=== PATIENT | male | born 1965 | race Caucasian/White ===

== ENCOUNTER 2020-08-22 14:00 | Outpatient (RCR) | payer OTHER, SELFPAY ==
[2020-07-02 09:26] VITALS: BMI 39.4
== END 2020-09-24 07:59 | disposition home or self-care (01) ==
LOC: ANHDMC 14:00
PROVIDERS: PCP Internal Medicine; Visit Provider Internal Medicine
DX: E11.9 Type 2 diabetes mellitus without complications (principal); Z71.3 Dietary counseling and surveillance; Z71.89 Other specified counseling
CPT/HCPCS: 97802; G0108

== ENCOUNTER 2020-09-09 13:20 | Inpatient (IN) | payer OTHER, SELFPAY ==
[2020-09-09] VITALS (15 sets, daily range): BP systolic 125–138; BP diastolic 78–86; PULSE 83–110; RESP 15–23; TEMP 36.2–38.8; O2SAT 89–95; BMI 36.0
--- NOTE | ~2020-09-09 | XR_ITS ---
XR chest 1V portable DATE: 09/09/2020 13:54 INDICATION: Shortness of breath. Covid positive. TECHNIQUE: Portable AP chest on 09/09/2020 at 1355 hours. COMPARISON: 02/01/2009 CT pulmonary FINDINGS: There is patchy bilateral pulmonary infiltrate, consistent with bilateral pneumonia. Normal heart size. No pulmonary vascular congestion or pleural effusion. No pneumothorax. IMPRESSION: Patchy bilateral pulmonary infiltrates, consistent with pneumonia Reviewed, dictated and finalized at location B. D IDENTIFICATION SPECIALIST
--- NOTE | 2020-09-09 13:36 | PC.NURSE ---
EDP Ariel at bedside, pt noted to be 89% on Ra, placed on 3L via NC at this time raising o2 level to 95%.
--- NOTE | 2020-09-09 13:37 | ED.GENADULT ---
HPI - General Adult General Chief complaint: Unspecified Stated complaint: shortness of breath, covid positive Time Seen by Provider: 09/09/20 13:31 Source: patient History of Present Illness HPI narrative: Patient is a 55 y/o male complaining of moderate shortness of breath starting 1 week ago. He states that his SOB is worsened by walking and exertion. He also has cough and fever up to 102.4. He states that he tested positive for COVID 1 week ago. Related Data Home Medications Medication Instructions Recorded Confirmed cholecalciferol (vitamin D3) 50 50 mcg PO DAILY 06/13/20 06/25/20 mcg (2,000 unit) tablet Allergies Allergy/AdvReac Type Severity Reaction Status Date / Time Sulfa (Sulfonamide Allergy Unknown Rash Verified 06/25/20 13:30 Antibiotics) Quinolones AdvReac Joint Pain Verified 09/09/20 11:24 Review of Systems Constitutional: Constitutional: Denies chills, Reports fever(s), Denies headache(s) and Denies weakness Eyes: Eyes: Denies blurry vision ENT: Denies headache(s) and Denies neck pain Cardiovascular: Cardiovascular: Denies chest pain and Reports dyspnea Respiratory: Respiratory: Reports cough and Reports dyspnea Gastrointestinal: Gastrointestinal: Denies abdominal pain, Denies diarrhea, Denies nausea and Denies vomiting Genitourinary: Genitourinary: Denies hematuria and Denies dysuria Musculoskeletal: Musculoskeletal: Denies back pain and Denies neck pain Neurologic: Denies headache(s) and Denies weakness PMFSH Past Medical History Medical History Abnormal finding of blood chemistry Body mass index (BMI) 40.0-44.9, adult Cough COVID-19 DM type 2 (diabetes mellitus, type 2) Encounter for routine adult health examination without abnormal findings Encounter for special screening examination for neoplasm of prostate Exposure to COVID-19 virus Hyperlipidemia Lateral epicondylitis of right elbow On group home drug therapy Skin cancer Sleep apnea Vision abnormalities Vitamin D deficiency Surgical History Surgical History History of left knee surgery arthroscopy History of surgery stomach/bowl Family History Family History Mother Family history of premature coronary heart disease Father Family history of coronary artery disease Other Acute myocardial infarction Diabetes mellitus Heart disease Social History Social History Smoking status: Never smoker Second hand tobacco smoke exposure: No Alcohol intake: current Gender identity (if verbalized by the patient): Male Spiritual care concerns: No Exam Const: General: no acute distress and well developed Orientation/consciousness: oriented to person, oriented to place, oriented to time and patient oriented x3 HENMT: Head: normocephalic Ears: external ears normal General nose exam: Normal external nose present Eyes: General: appearance normal, both eyes and all related structures Conjunctivae: conjunctivae normal Neck: Neck: normal visual inspection and full ROM Chest: Chest palpation & inspection: normal inspection of the chest and no tenderness Resp: Effort & Inspection: normal respiratory effort Auscultation: clear to auscultation bilaterally Cardio: Rate: tachycardic Rhythm: regular rhythm GI: GI Palp: No abdominal tenderness and Yes Soft to palpation Skin: General skin exam: normal color and turgor normal Neuro: General: oriented to person, oriented to place, oriented to time and patient oriented x3 Cognition (Neuro): normal cognition Extrem: General: normal to inspection, full ROM and no pedal edema Psych: Appearance: grossly normal Mental Status: mental status grossly normal Affect: normal affect Course Consultations Consultation #1: Discussed with BRENNON Aguilar, who agrees
--- NOTE | 2020-09-09 13:40 | ECG_ITS ---
Measurements Intervals Lilly Rate: 108 P: -19 OK: 120 QRS: 14 QRSD: 100 T: 14 QT: 344 QTc: 462 Interpretive Statements SINUS TACHYCARDIA INCOMPLETE RIGHT BUNDLE BRANCH BLOCK DELAYED PRECORDIAL R/S TRANSITION BORDERLINE T WAVE ABNORMALITY- INFERIOR LEADS ABNORMAL ECG Electronically Signed On 09-09-2020 14:15:06 MOBILITY SCOOTER REPAIRER by Vernon Rodriguez D.O.
--- NOTE | 2020-09-09 13:50 | PC.NURSE ---
xray at bedside.
[2020-09-09 14:06] LABS: Basophils Percent Auto 0.8 % (0.2-1.2); Hematocrit 45.2 % (42.0-52.0); Hemoglobin 15.6 g/dL (14.0-18.0); Immature Granulocyte Absolute 0.03 K/mm3 (0.00-0.031); Immature Granulocyte Percent A 0.8 % (0-0.5); Lymphocytes Absolute Auto 0.72 K/mm3 (0.9-3.2); Lymphocytes Percent Auto 20.3 % (18.3-44.2); Mean Corpuscular HGB Conc 34.5 g/dl (32-36); Mean Corpuscular Hemoglobin 29.6 pg (26-34); Mean Corpuscular Volume 85.8 fl (80-100); Mean Platelet Volume 9.3 fl (7.4-10.4); Monocytes Absolute Auto 0.4 K/mm3 (0.1-0.6); Monocytes Percent Auto 11.8 % (2.6-8.5); Neutrophils Absolute Auto 2.4 K/mm3 (1.3-6.7); Neutrophils Percent Auto 66.3 % (45.5-73.1); Platelet Count Result 107 k/mm3 (150-375); Red Blood Count 5.27 M/mm3 (4.6-6.20); Red Cell Distribution Width 12.4 % (11.5-14.5); White Blood Count 3.6 K/mm3 (4.5-10.0)
[2020-09-09] MEDS: DEXAMETHASONE SOD PHOS INJ 4 MG/ML VIAL 6 MG IV PUSH (14:06)
[2020-09-09 14:17] LABS: Alanine Aminotransferase 74 U/L (4-50); Albumin Level 3.7 g/dL (3.5-5.1); Alkaline Phosphatase 71 U/L (38-126); Anion Gap 4 mmol/L (8-16); Aspartate Amino Transferase 79 U/L (17-59); Bilirubin,Total 0.5 mg/dL (0.2-1.3); Blood Urea Nitrogen 10 mg/dL (9-20); Calcium 7.6 mg/dL (8.4-10.2); Carbon Dioxide 31 mmol/L (22-30); Chloride 98 mmol/L (98-107); Estimated Glomerular Filt Rate > 60; Glucose 190 mg/dL (75-110); Potassium 3.4 mmol/L (3.4-5.0); Sodium 133 mmol/L (137-145)
[2020-09-09] MEDS: REMDESIVIR 200 MG/NS 250 ML 200 MG/250 ML BAG 250 MG IVPB (14:53)
--- NOTE | 2020-09-09 14:59 | PC.NURSE ---
VERBAL ORDER FROM PATRICIO PAREDES FOR 1G OFIRMEV IV STAT FOR TEMP 101.8
--- NOTE | 2020-09-09 15:57 | PC.NURSE ---
This patient, Chris Rodas, was admitted to [facility] Surg Room 328-01. Patient/family oriented to hospital policies and general routines including ID bracelet, bed and alarms, visiting hours, pain management, procedures, bathroom and other care routines, personal items, smoking policy, room service/diet, and visiting hours. Information on how to activate the Rapid Response Team has been discussed. Patient/Family are encouraged to report perceived risks to care and to ask questions if they do not understand what they are told or what they should do.
[2020-09-09 21:24] LABS: Glucose Point of Care 259 (65-105)
--- NOTE | 2020-09-09 21:27 | PM.IMHP ---
H&P: HPI History of Present Illness Date/Time: 09/09/20 21:27 Chief Complaint: Worsening shortness of breath Narrative: This is a pleasant 55 year old Diabetic male with known hyperlipidemia and HTN who presented to the hospital today with worsening shortness of breath. He was diagnosed with COVID-19 eight days ago. His and two daughters also were COVID-19 positive. He has had ongoing intermittent fevers and coughing. He was evaluated in the ER today and found to be hypoxic on room air. He was placed on 3L of oxygen via NC to maintain his oxygen saturations. CXR demonstrated patchy bilateral pulmonary infiltrates. The patient was treated with IV decadron and Remdesivir in the ER. On my encounter with him, he continues to have coughing but denies any fever, chest pain, nausea, vomiting, diarrhea, abdominal pain, dysuria, hematuria, diarrhea, or rectal bleeding. No other complaints. Review of Systems Review of Systems: All systems reviewed & are unremarkable except as noted in HPI and below PMFSH Past Medical History Medical History Abnormal finding of blood chemistry Body mass index (BMI) 40.0-44.9, adult Cough COVID-19 DM type 2 (diabetes mellitus, type 2) Encounter for routine adult health examination without abnormal findings Encounter for special screening examination for neoplasm of prostate Exposure to COVID-19 virus H/O: HTN (hypertension) Hyperlipidemia Lateral epicondylitis of right elbow On long-term drug therapy Skin cancer Sleep apnea Vision abnormalities Vitamin D deficiency Surgical History Surgical History History of left knee surgery arthroscopy History of surgery stomach/bowl Family History Family History Mother Family history of premature coronary heart disease Father Family history of coronary artery disease Other Acute myocardial infarction Diabetes mellitus Heart disease Social History Social History Smoking status: Never smoker Second hand tobacco smoke exposure: No Alcohol intake: never Substance use: never Substance use type: does not use Gender identity (if verbalized by the patient): Male Spiritual care concerns: No Meds Home Medications and Allergies Home Medications Medication Instructions Recorded Confirmed Type blood sugar diagnostic #100 each 03/11/20 09/09/20 Rx rosuvastatin 20 mg tablet 20 mg PO DAILY #90 tablet 04/24/20 09/09/20 Rx empagliflozin 5 mg-metformin 500 1 tablet PO BID #180 tablet 06/13/20 09/09/20 Rx mg tablet icosapent ethyl 1 gram capsule See Rx Instructions .ROUTE 07/15/20 09/09/20 Rx .COMPLEX #120 capsule Allergies Allergy/AdvReac Type Severity Reaction Status Date / Time Sulfa (Sulfonamide Allergy Unknown Rash Verified 06/25/20 13:30 Antibiotics) Quinolones AdvReac Joint Pain Verified 09/09/20 11:24 Vital Signs Vital Signs - 24 hr 09/09/20 13:31 09/09/20 13:32 09/09/20 13:33 Temperature 37.7 C H Pulse Rate 107 H 107 H 107 H Respiratory Rate 17 17 17 Blood Pressure 127/83 127/83 Pulse Oximetry 90 89 L 09/09/20 13:53 09/09/20 14:00 09/09/20 14:01 Temperature Pulse Rate 107 H 107 H 106 H Respiratory Rate 16 18 15 Blood Pressure 131/78 Pulse Oximetry 94 94 93 09/09/20 14:02 09/09/20 14:21 09/09/20 14:54 Temperature 38.8 C H Pulse Rate 108 H 110 H 106 H Respiratory Rate 23 H 20 17 Blood Pressure 138/86 138/86 Pulse Oximetry 94 94 92 09/09/20 15:28 09/09/20 15:40 09/09/20 16:00 Temperature 36.8 C Pulse Rate 98 95 90 Respiratory Rate 15 18 Blood Pressure 128/81 135/81 Pulse Oximetry 93 95 09/09/20 16:52 Temperature Pulse Rate 90 Respiratory Rate 18 Blood Pressure Pulse Oximetry 95 Exam Const: General: cooperative, alert, aw
[2020-09-09] MEDS: SODIUM CHLORIDE 0.9% IV 1,000 ML 75 ML IV CONT (22:09)
[2020-09-09] MEDS: guaiFENesin/DEXTROMETHORPHAN 10 ML UDC 5 ML PO (22:10)
[2020-09-10] VITALS (11 sets, daily range): BP systolic 116–134; BP diastolic 78–85; PULSE 78–93; RESP 18–20; TEMP 36.1–36.5; O2SAT 89–94
[2020-09-10] MEDS: LEVALBUTEROL HFA (*SP) 15 GM INHALER 2 PUFF INHALATION ×4 (01:59→20:44)
[2020-09-10 06:03] LABS: Basophils Percent Auto 0.3 % (0.2-1.2); Hemoglobin 15.3 g/dL (14.0-18.0); Immature Granulocyte Absolute 0.02 K/mm3 (0.00-0.031); Immature Granulocyte Percent A 0.5 % (0-0.5); Lymphocytes Absolute Auto 0.69 K/mm3 (0.9-3.2); Lymphocytes Percent Auto 18.9 % (18.3-44.2); Mean Corpuscular HGB Conc 34.8 g/dl (32-36); Mean Corpuscular Hemoglobin 30.3 pg (26-34); Mean Corpuscular Volume 87.1 fl (80-100); Mean Platelet Volume 9.1 fl (7.4-10.4); Monocytes Absolute Auto 0.5 K/mm3 (0.1-0.6); Monocytes Percent Auto 14.2 % (2.6-8.5); Neutrophils Absolute Auto 2.4 K/mm3 (1.3-6.7); Neutrophils Percent Auto 66.1 % (45.5-73.1); Platelet Count Result 109 k/mm3 (150-375); Red Blood Count 5.05 M/mm3 (4.6-6.20); Red Cell Distribution Width 12.5 % (11.5-14.5); White Blood Count 3.7 K/mm3 (4.5-10.0)
[2020-09-10 06:21] LABS: Alanine Aminotransferase 64 U/L (4-50); Anion Gap 6 mmol/L (8-16); Blood Urea Nitrogen 11 mg/dL (9-20); Calcium 7.8 mg/dL (8.4-10.2); Carbon Dioxide 30 mmol/L (22-30); Chloride 99 mmol/L (98-107); Estimated CRCL calculation 170 ml/min; Estimated Glomerular Filt Rate > 60; Glucose 142 mg/dL (75-110); Magnesium 1.9 mg/dL (1.6-2.3); Potassium 3.6 mmol/L (3.4-5.0); Sodium 135 mmol/L (137-145)
[2020-09-10 08:08] LABS: Glucose Point of Care 141 (65-105)
[2020-09-10] MEDS: ROSUVASTATIN 10 MG TABLET PO (09:43)
[2020-09-10] MEDS: ENOXAPARIN 40 MG/0.4 ML SYRINGE SUB-Q (09:43)
[2020-09-10] MEDS: guaiFENesin/DEXTROMETHORPHAN 10 ML UDC 5 ML PO (09:43)
[2020-09-10] MEDS: DEXAMETHASONE SOD PHOS INJ 4 MG/ML VIAL 6 MG IV PUSH (09:43)
[2020-09-10] MEDS: SODIUM CHLORIDE 0.9% IV 1,000 ML 75 ML IV CONT (09:58)
[2020-09-10] MEDS: REMDESIVIR 100 MG/NS 250 ML 100 MG/250 ML BAG 250 MG IVPB (11:54)
[2020-09-10 12:04] LABS: Glucose Point of Care 168 (65-105)
--- NOTE | 2020-09-10 13:29 | PM.IMPN ---
Progress Note: A&P Assessment and Plan (1) Acute respiratory failure with hypoxia: Code(s): J96.01 - Acute respiratory failure with hypoxia Status: Acute Assessment and Plan: secondary to COVID-19 pneumonia. He has been hypoxic in the 88-89% range. Currently he is maintaining adequate O2 saturations on 3 L per nasal cannula continue supplemental O2 with goal saturation 90% or above treatment for COVID-19 as described below (2) Pneumonia due to COVID-19 virus: Code(s): U07.1 - COVID-19; J12.82 - Pneumonia due to coronavirus disease 2019 Status: Acute Assessment and Plan: Patient tested positive for COVID on 09/02/2020 with symptom onset approximately 9 days prior to presentation. CXR showed patchy bilateral pulmonary infiltrates. He is currently requiring 3 L O2 per nasal cannula. Continue Remdesivir for up to 5 days. Started on 09/09/20. Monitor LFTs Continue dexamethasone for up to 10 days, also started 09/09 Supplemental O2 as noted above. Supportive care to include bronchodilators, expectorants, and antipyretics Trend acute phase reactants (3) Elevated liver enzymes: Code(s): R74.8 - Abnormal levels of other serum enzymes Status: Acute Assessment and Plan: [place] to be secondary to COVID-19 infection. monitor LFTs closely, especially in light of Remdesivir therapy (4) DM type 2 (diabetes mellitus, type 2): Qualifiers: Diabetes mellitus exterminator helper termite insulin use: without assisted use Diabetes mellitus complication status: without complication Qualified Code(s): E11.9 - Type 2 diabetes mellitus without complications Code(s): E11.9 - Type 2 diabetes mellitus without complications Status: Chronic Assessment and Plan: last A1c 7.2 in March 2020. Blood sugars reviewed today and remain fairly well controlled. Continue Accuchecks ACHS, SSI Coverage, and hypoglycemic protocol. empagliflozin-metformin is non formulary therefore has been discontinued. (5) Hyperlipidemia: Qualifiers: Hyperlipidemia type: mixed hyperlipidemia Qualified Code(s): E78.2 - Mixed hyperlipidemia Code(s): E78.5 - Hyperlipidemia, unspecified Status: Chronic Assessment and Plan: Continue statin therapy. (6) H/O: HTN (hypertension): Code(s): Z86.79 - Personal history of other diseases of the circulatory system Status: Chronic Assessment and Plan: He is not currently on any antihypertensive agents. Blood pressures reviewed and have been very well controlled. Last BP 134/81. Monitor BP daily Subjective Date/time seen: 09/10/20 13:29 Interval history: date of service: 09/10/2020 Chris Rodas is a 55-year-old male with a history of type 2 diabetes mellitus, hypertension, hyperlipidemia, and WILL who is seen in follow-up for COVID-19 pneumonia. He is feeling better today. He becomes extremely dyspneic with minimal exertion. After walking to the bathroom today he became quite winded. He reports coughing only when he is feeling particularly short of breath. This morning he cough productive of yellow sputum but since then has not been coughing much. At rest, he feels comfortable with his breathing. He reports loss of smell and decreased sense taste. his appetite has been fair and he has been maintaining adequate oral intake. He denies fevers or chills. He had a regular bowel movement this morning. He does endorse abdominal bloating but denies cramping or pain. He denies any urinary symptoms. denies chest pain or palpitations. Denies weakness, dizziness, or lightheadedness. Review of Systems Review of Systems: All systems reviewed & are unremarkable except as noted in HPI and below Exam Narrative: Exam Narrative: Mr. Rodas is No obese, well-appearing 55-year-old male who is lying semi recumbent in bed. he appears comfortable and is in NARD. HR 90, BP 11
[2020-09-10] MEDS: INSULIN ASPART (*BKC) 100 UNITS/ML SUB-Q (16:51)
[2020-09-10 17:53] LABS: Glucose Point of Care 219 (65-105)
[2020-09-10] MEDS: guaiFENesin 12 HR 600 MG TABCR PO (20:40)
[2020-09-10] MEDS: SIMETHICONE 80 MG TAB.CHEW PO (22:34)
[2020-09-11] VITALS (7 sets, daily range): BP systolic 117–143; BP diastolic 49–81; PULSE 70–85; RESP 18–22; TEMP 36.4–37.2; O2SAT 90–95
[2020-09-11] MEDS: LEVALBUTEROL HFA (*SP) 15 GM INHALER 2 PUFF INHALATION ×3 (02:53→17:30)
[2020-09-11 06:38] LABS: Hematocrit 42.4 % (42.0-52.0); Hemoglobin 14.5 g/dL (14.0-18.0); Mean Corpuscular HGB Conc 34.2 g/dl (32-36); Mean Corpuscular Volume 87.6 fl (80-100); Mean Platelet Volume 9.3 fl (7.4-10.4); Platelet Count Result 140 k/mm3 (150-375); Red Blood Count 4.84 M/mm3 (4.6-6.20); Red Cell Distribution Width 12.6 % (11.5-14.5); White Blood Count 5.4 K/mm3 (4.5-10.0)
[2020-09-11 06:47] LABS: Alanine Aminotransferase 56 U/L (4-50); Albumin Level 3.5 g/dL (3.5-5.1); Alkaline Phosphatase 62 U/L (38-126); Anion Gap 8 mmol/L (8-16); Aspartate Amino Transferase 56 U/L (17-59); Bilirubin,Total 0.5 mg/dL (0.2-1.3); Blood Urea Nitrogen 14 mg/dL (9-20); CRP 1.4 mg/dL (<1.0); Calcium 8.1 mg/dL (8.4-10.2); Carbon Dioxide 30 mmol/L (22-30); Chloride 100 mmol/L (98-107); Estimated CRCL calculation 147 ml/min; Estimated Glomerular Filt Rate > 60; Glucose 153 mg/dL (75-110); Lactate Dehydrogenase 603 U/L (313-618); Potassium 3.4 mmol/L (3.4-5.0); Sodium 138 mmol/L (137-145)
[2020-09-11 08:47] LABS: Glucose Point of Care 141 (65-105)
[2020-09-11] MEDS: DEXAMETHASONE SOD PHOS INJ 4 MG/ML VIAL 6 MG IV PUSH (10:00)
[2020-09-11] MEDS: ENOXAPARIN 40 MG/0.4 ML SYRINGE SUB-Q (10:48)
[2020-09-11] MEDS: ROSUVASTATIN 10 MG TABLET PO (10:48)
[2020-09-11] MEDS: REMDESIVIR 100 MG/NS 250 ML 100 MG/250 ML BAG 250 MG IVPB (10:48)
[2020-09-11] MEDS: guaiFENesin 12 HR 600 MG TABCR PO (10:48)
--- NOTE | 2020-09-11 12:07 | PM.IMPN ---
Progress Note: A&P Assessment and Plan (1) Acute respiratory failure with hypoxia: Code(s): J96.01 - Acute respiratory failure with hypoxia Status: Acute Assessment and Plan: Secondary to COVID-19 pneumonia. He was hypoxic in the 88-89% range. Currently he is maintaining adequate O2 saturations on 3 L per nasal cannula continue supplemental O2 with goal saturation 90% or above treatment for COVID-19 as described below (2) Pneumonia due to COVID-19 virus: Code(s): U07.1 - COVID-19; J12.82 - Pneumonia due to coronavirus disease 2019 Status: Acute Assessment and Plan: Patient tested positive for COVID on 09/02/2020 with symptom onset approximately 9 days prior to presentation. CXR showed patchy bilateral pulmonary infiltrates. He is currently requiring 3 L O2 per nasal cannula. Continue Remdesivir for up to 5 days. Started on 09/09/20. Monitor LFTs Continue dexamethasone for up to 10 days, also started 09/09 Supplemental O2 as noted above. Supportive care to include bronchodilators, expectorants, antipyretics, incentive spirometer Trend acute phase reactants (3) Elevated liver enzymes: Code(s): R74.8 - Abnormal levels of other serum enzymes Status: Acute Assessment and Plan: [place] to be secondary to acute viral illness. ALT is elevated but improving. AST and ALP wnl monitor LFTs closely, especially in light of Remdesivir therapy (4) DM type 2 (diabetes mellitus, type 2): Qualifiers: Diabetes mellitus fci insulin use: without fci use Diabetes mellitus complication status: without complication Qualified Code(s): E11.9 - Type 2 diabetes mellitus without complications Code(s): E11.9 - Type 2 diabetes mellitus without complications Status: Chronic Assessment and Plan: last A1c 7.2 in March 2020. Blood sugars reviewed today and remain fairly well controlled. Continue Accuchecks ACHS, SSI Coverage, and hypoglycemic protocol. empagliflozin-metformin is non formulary therefore has been discontinued. Close monitoring of glucose trends especially in light of IV steroid therapy (5) Hyperlipidemia: Qualifiers: Hyperlipidemia type: mixed hyperlipidemia Qualified Code(s): E78.2 - Mixed hyperlipidemia Code(s): E78.5 - Hyperlipidemia, unspecified Status: Chronic Assessment and Plan: Continue statin therapy. (6) H/O: HTN (hypertension): Code(s): Z86.79 - Personal history of other diseases of the circulatory system Status: Chronic Assessment and Plan: He is not currently on any antihypertensive agents. Blood pressures reviewed and have been very well controlled. Last BP 120/77 Monitor BP daily Subjective Date/time seen: 09/11/20 12:07 Interval history: Date of service: 09/11/2020 Chris Rodas is a 55-year-old male with a history of type 2 diabetes mellitus, hypertension, hyperlipidemia, and WILL who is seen in follow-up for COVID-19 pneumonia. Is feeling okay today. At rest he is comfortable. He does endorse dyspnea on exertion specifically with walking to the bathroom. He states that he was able to walk from the bed to the couch without much dyspnea but walking further to the restroom did cause him to be quite short of breath. He coughs only when he is feeling dyspneic or if he tries to take a deep breath. He is not having much uterine production. He has been eating well. He denies abdominal pain, nausea, vomiting, cramping, or bloating. He has been having regular bowel movements. He has been urinating without difficulty. He denies chest pain or palpitations. Denies dizziness, lightheadedness, fevers, chills, or weakness. Review of Systems Review of Systems: All systems reviewed & are unremarkable except as noted in HPI and below Exam Narrative: Exam Narrative: Mr. Rodas is an obese, well-appearing 55-year-old male who
[2020-09-11 12:43] LABS: Glucose Point of Care 156 (65-105)
[2020-09-11 17:04] LABS: Glucose Point of Care 297 (65-105)
[2020-09-11] MEDS: INSULIN ASPART (*BKC) 100 UNITS/ML SUB-Q (18:42)
[2020-09-11] MEDS: guaiFENesin/DEXTROMETHORPHAN 10 ML UDC 5 ML PO (20:45)
[2020-09-12] VITALS (7 sets, daily range): BP systolic 118–128; BP diastolic 69–75; PULSE 63–74; RESP 18–20; TEMP 36.6–37.2; O2SAT 90–96
[2020-09-12 06:28] LABS: Hematocrit 42.3 % (42.0-52.0); Hemoglobin 14.4 g/dL (14.0-18.0); Mean Corpuscular Hemoglobin 30.4 pg (26-34); Mean Corpuscular Volume 89.4 fl (80-100); Mean Platelet Volume 9.1 fl (7.4-10.4); Platelet Count Result 156 k/mm3 (150-375); Red Blood Count 4.73 M/mm3 (4.6-6.20); Red Cell Distribution Width 12.6 % (11.5-14.5); White Blood Count 5.9 K/mm3 (4.5-10.0)
[2020-09-12 06:48] LABS: Alanine Aminotransferase 50 U/L (4-50); Albumin Level 3.3 g/dL (3.5-5.1); Alkaline Phosphatase 60 U/L (38-126); Anion Gap 2 mmol/L (8-16); Aspartate Amino Transferase 47 U/L (17-59); Bilirubin,Total 0.5 mg/dL (0.2-1.3); Blood Urea Nitrogen 14 mg/dL (9-20); Calcium 8.2 mg/dL (8.4-10.2); Carbon Dioxide 35 mmol/L (22-30); Chloride 102 mmol/L (98-107); Estimated CRCL calculation 130 ml/min; Estimated Glomerular Filt Rate > 60; Glucose 140 mg/dL (75-110); Potassium 3.6 mmol/L (3.4-5.0); Sodium 139 mmol/L (137-145)
[2020-09-12 08:27] LABS: Glucose Point of Care 132 (65-105)
[2020-09-12] MEDS: DEXAMETHASONE SOD PHOS INJ 4 MG/ML VIAL 6 MG IV PUSH (09:28)
[2020-09-12] MEDS: LEVALBUTEROL HFA (*SP) 15 GM INHALER 2 PUFF INHALATION ×3 (09:28→20:05)
[2020-09-12] MEDS: ENOXAPARIN 40 MG/0.4 ML SYRINGE SUB-Q ×2 (09:29→20:05)
[2020-09-12] MEDS: guaiFENesin 12 HR 600 MG TABCR PO ×2 (09:29→20:05)
[2020-09-12] MEDS: ROSUVASTATIN 10 MG TABLET PO (09:29)
[2020-09-12] MEDS: REMDESIVIR 100 MG/NS 250 ML 100 MG/250 ML BAG 250 MG IVPB (09:30)
[2020-09-12 12:06] LABS: Glucose Point of Care 186 (65-105)
--- NOTE | 2020-09-12 14:55 | PM.IMPN ---
Progress Note: A&P Assessment and Plan (1) Acute respiratory failure with hypoxia: Code(s): J96.01 - Acute respiratory failure with hypoxia Status: Acute Assessment and Plan: Secondary to COVID-19 pneumonia. He was hypoxic in the 88-89% range upon presentation. Currently he is maintaining adequate O2 saturations on 3 L per nasal cannula continue supplemental O2 with goal saturation 90% or above treatment for COVID-19 as described below We will proceed with a home O2 evaluation tomorrow (2) Pneumonia due to COVID-19 virus: Code(s): U07.1 - COVID-19; J12.82 - Pneumonia due to coronavirus disease 2018 Status: Acute Assessment and Plan: Patient tested positive for COVID on 09/02/2020 with symptom onset approximately 9 days prior to presentation. CXR showed patchy bilateral pulmonary infiltrates. He is currently requiring 3 L O2 per nasal cannula. He reports marked symptomatic improvement today. Continue Remdesivir for up to 5 days. Started on 09/09/20. Monitor LFTs Continue dexamethasone for up to 10 days, also started 09/09 Supplemental O2 as noted above. Supportive care to include bronchodilators, expectorants, antipyretics, incentive spirometer Trend acute phase reactants Hopeful discharge tomorrow if continued improvement. Plan for home O2 eval as noted above (3) Elevated liver enzymes: Code(s): R74.8 - Abnormal levels of other serum enzymes Status: Acute Assessment and Plan: Resolved. [place] to be secondary to acute viral illness. LFTs have normalized. monitor LFTs closely, especially in light of Remdesivir therapy (4) DM type 2 (diabetes mellitus, type 2): Qualifiers: Diabetes mellitus exterminator helper insulin use: without exterminator helper use Diabetes mellitus complication status: without complication Qualified Code(s): E11.9 - Type 2 diabetes mellitus without complications Code(s): E11.9 - Type 2 diabetes mellitus without complications Status: Chronic Assessment and Plan: last A1c 7.2 in March 2020. Blood sugars reviewed today and remain fairly well controlled Continue Accuchecks ACHS, SSI Coverage, and hypoglycemic protocol. empagliflozin-metformin is non formulary therefore has been discontinued. Close monitoring of glucose trends especially in light of IV steroid therapy (5) Hyperlipidemia: Qualifiers: Hyperlipidemia type: mixed hyperlipidemia Qualified Code(s): E78.2 - Mixed hyperlipidemia Code(s): E78.5 - Hyperlipidemia, unspecified Status: Chronic Assessment and Plan: Continue statin therapy. (6) H/O: HTN (hypertension): Code(s): Z86.79 - Personal history of other diseases of the circulatory system Status: Chronic Assessment and Plan: He is not currently on any antihypertensive agents. Blood pressures reviewed and have been very well controlled. Last BP 118/69 Monitor BP daily Subjective Date/time seen: 09/12/20 14:55 Interval history: Date of service: 09/12/2020 Chris Rodas is a 55-year-old male with a history of type 2 diabetes mellitus, hypertension, hyperlipidemia, and WILL who is seen in follow-up for COVID-19 pneumonia. Is feeling a lot better today. His dyspnea has improved significantly. He was able to walk to the bathroom and back without much shortness of breath. He is coughing less. He has been eating well and his appetite has improved. He reports regular bowel movements and denies any urinary symptoms. He denies abdominal pain, cramping, or bloating. Denies fevers or chills. He has no additional concerns at this time and is feeling a lot better. Review of Systems Review of Systems: All systems reviewed & are unremarkable except as noted in HPI and below Exam Narrative: Exam Narrative: Mr. Rodas is an obese, well-appearing 55-year-old male who is lying semi recumbent in bed. he appears comfortable a
[2020-09-12 17:41] LABS: Glucose Point of Care 240 (65-105)
[2020-09-12] MEDS: INSULIN ASPART (*BKC) 100 UNITS/ML SUB-Q (17:54)
[2020-09-12 21:20] LABS: Glucose Point of Care 231 (65-105)
[2020-09-13] VITALS (11 sets, daily range): BP systolic 123; BP diastolic 72; PULSE 65–100; RESP 20; TEMP 37; O2SAT 85–93
[2020-09-13] MEDS: LEVALBUTEROL HFA (*SP) 15 GM INHALER 2 PUFF INHALATION ×3 (02:00→14:28)
[2020-09-13 06:47] LABS: Hematocrit 42.1 % (42.0-52.0); Hemoglobin 14.3 g/dL (14.0-18.0); Mean Corpuscular Hemoglobin 30.2 pg (26-34); Mean Platelet Volume 9.2 fl (7.4-10.4); Platelet Count Result 164 k/mm3 (150-375); Red Blood Count 4.73 M/mm3 (4.6-6.20); Red Cell Distribution Width 12.7 % (11.5-14.5); White Blood Count 6.3 K/mm3 (4.5-10.0)
[2020-09-13 07:03] LABS: Alanine Aminotransferase 44 U/L (4-50); Albumin Level 3.1 g/dL (3.5-5.1); Alkaline Phosphatase 58 U/L (38-126); Anion Gap 2 mmol/L (8-16); Aspartate Amino Transferase 40 U/L (17-59); Bilirubin,Total 0.5 mg/dL (0.2-1.3); Blood Urea Nitrogen 13 mg/dL (9-20); CRP 0.8 mg/dL (<1.0); Carbon Dioxide 32 mmol/L (22-30); Chloride 105 mmol/L (98-107); Estimated CRCL calculation 147 ml/min; Estimated Glomerular Filt Rate > 60; Glucose 120 mg/dL (75-110); Lactate Dehydrogenase 512 U/L (313-618); Potassium 3.6 mmol/L (3.4-5.0); Sodium 139 mmol/L (137-145)
[2020-09-13 08:25] LABS: Glucose Point of Care 94 (65-105)
[2020-09-13] MEDS: DEXAMETHASONE SOD PHOS INJ 4 MG/ML VIAL 6 MG IV PUSH (08:52)
[2020-09-13] MEDS: guaiFENesin 12 HR 600 MG TABCR PO (08:52)
[2020-09-13] MEDS: ENOXAPARIN 40 MG/0.4 ML SYRINGE SUB-Q (08:52)
[2020-09-13] MEDS: ROSUVASTATIN 10 MG TABLET PO (08:52)
[2020-09-13] MEDS: REMDESIVIR 100 MG/NS 250 ML 100 MG/250 ML BAG 250 MG IVPB (09:01)
--- NOTE | 2020-09-13 11:11 | HOMEO2EVAL ---
Home Oxygen Evaluation RC: Home Oxygen (O2) Evaluation Start: 09/13/20 09:13 Freq: ONCE Status: Active Protocol: RPE Activity Type Activity Date Activity User E-Sign Co-Sign Detail Recorded Client Recorded Date Recorded By Document 09/13/20 10:00 GABRIELA [email or web address] 09/13/20 11:11 GABRIELA Document 09/13/20 10:03 GABRIELA [email or web address] 09/13/20 11:11 GABRIELA Document 09/13/20 10:05 GABRIELA [email or web address] 09/13/20 11:11 GABRIELA Document 09/13/20 10:10 GABRIELA [email or web address] 09/13/20 11:11 GABRIELA Document 09/13/20 10:12 GABRIELA [email or web address] 09/13/20 11:11 GABRIELA Document 09/13/20 10:14 GABRIELA [email or web address] 09/13/20 11:11 GABRIELA Document 09/13/20 10:15 GABRIELA [email or web address] 09/13/20 11:11 GABRIELA Document 09/13/20 10:25 GABRIELA [email or web address] 09/13/20 11:11 GABRIELA 09/13/20 09/13/20 09/13/20 10:00 10:03 10:05 Home O2 Evaluation Test Phase Resting Resting Resting Oxygen Delivery Room Air Nasal Cannula Nasal Cannula Oxygen Flow Rate (L/min) 1 2 Pulse Oximetry (90-100 %) 87 L 87 L 90 Pulse Rate (60-100 beats/min) 82 Ambulation Distance (feet) Home Oxygen Evaluation Comments Treatment Charges O2 Evaluation - Inpatient 09/13/20 09/13/20 09/13/20 10:10 10:12 10:14 Home O2 Evaluation Test Phase Exercise Exercise Exercise Oxygen Delivery Nasal Cannula Nasal Cannula Nasal Cannula Oxygen Flow Rate (L/min) 2 3 4 Pulse Oximetry (90-100 %) 85 L 86 L 87 L Pulse Rate (60-100 beats/min) 99 Ambulation Distance (feet) Home Oxygen Evaluation Comments Treatment Charges 09/13/20 09/13/20 10:15 10:25 Home O2 Evaluation Test Phase Exercise Resting Oxygen Delivery Nasal Cannula Nasal Cannula Oxygen Flow Rate (L/min) 5 2 Pulse Oximetry (90-100 %) 89 L 90 Pulse Rate (60-100 beats/min) 100 83 Ambulation Distance (feet) 30 Home Oxygen Evaluation Comments pt requires 2 l at rest and 5 l with activity Treatment Charges
--- NOTE | 2020-09-13 11:12 | PCRCNOTE ---
Home o2 eval completed, Pt requires 2 L at rest and 5 L with activity. Will arrange with [facility] for home O2 and bring tank to room for transport home.
[2020-09-13 12:32] LABS: Glucose Point of Care 216 (65-105)
--- NOTE | 2020-09-13 12:56 | PM.DS ---
DS: Admitting Diagnosis Admitting Diagnosis Admitting Diagnosis: COVID-19 pneumonia DS: Discharge Diagnosis Discharge Diagnosis (1) Acute respiratory failure with hypoxia: Code(s): J96.01 - Acute respiratory failure with hypoxia Status: Acute Assessment and Plan: Secondary to COVID-19 pneumonia. He was hypoxic in the 88-89% range upon presentation. He required up to 3 L of supplemental O2 per nasal cannula. He had a home O2 evaluation and he will require 2 L at rest and 5 L with exertion. He will continue supplemental oxygen until follow-up his PCP. (2) Pneumonia due to COVID-19 virus: Code(s): U07.1 - COVID-19; J12.82 - Pneumonia due to coronavirus disease 2019 Status: Acute Assessment and Plan: Patient tested positive for COVID on 09/02/2020 with symptom onset approximately 9 days prior to presentation. CXR showed patchy bilateral pulmonary infiltrates. He required up to 3 L supplemental O2. He remained afebrile. He completed 5 days of IV Remdesivir. He received 5 days of IV Dexamethasone and will continue PO at home to complete 10 days. Supportive care provided including bronchodilators and expectorants. We discussed COVID-19 precautions. (3) Elevated liver enzymes: Code(s): R74.8 - Abnormal levels of other serum enzymes Status: Acute Assessment and Plan: Resolved. [place] to be secondary to acute viral illness. LFTs normalized. (4) DM type 2 (diabetes mellitus, type 2): Qualifiers: Diabetes mellitus complication status: without complication Diabetes mellitus detention insulin use: without detention use Qualified Code(s): E11.9 - Type 2 diabetes mellitus without complications Code(s): E11.9 - Type 2 diabetes mellitus without complications Status: Chronic Assessment and Plan: Last A1c 7.2 in March 2020. Blood sugars were generally well controlled, especially given steroid therapy. His empagliflozin-metformin was non formulary therefore held during hospital stay but should be continued at home. Encouraged close glucose monitoring given continued steroid use. (5) Hyperlipidemia: Qualifiers: Hyperlipidemia type: mixed hyperlipidemia Qualified Code(s): E78.2 - Mixed hyperlipidemia Code(s): E78.5 - Hyperlipidemia, unspecified Status: Chronic Assessment and Plan: Continue statin therapy. (6) H/O: HTN (hypertension): Code(s): Z86.79 - Personal history of other diseases of the circulatory system Status: Chronic Assessment and Plan: He is not currently on any antihypertensive agents. Blood pressures reviewed and were very well controlled. DS: Summary Hospital Course Reason for hospitalization: COVID-19 pneumonia Hospital Course: date of admission: 09/09/2020 date of discharge: 09/13/2020 Chris Rodas is a 55-year-old male with a history of type 2 diabetes mellitus, hypertension, hyperlipidemia, and WILL who presented to the emergency department on 09/09/2020 with complaints of shortness of breath ongoing approximately 1 week and worsened with exertion. He has been diagnosed with COVID-19 1 week prior to presentation and had been monitoring his O2 sats at home and noted that they had declined to the upper 80s. He also reported cough and fever with T-max 102.4?. Upon presentation to the emergency department, he was afebrile, mildly tachycardic with additional vital signs stable, he had leukopenia and thrombocytosis, sodium slightly decreased with additional electrolytes stable, and chest x-ray showed patchy bilateral pulmonary infiltrates consistent with pneumonia. He was admitted to the hospitalist service for further evaluation and management. Please see above for further details. His oxygen requirements remained stable and he had significant symptomatic improvement. He began feeling much better and requested discharge home. He had a home O2 eval and will continue w
== END 2020-09-13 14:35 | disposition home or self-care (01) | DRG 177 ==
LOC: ANHED 14:46 → ANH3MEDSUR 15:09
PROVIDERS: Family Medicine; Physician Assistant; Admitting Provider Family Medicine; Emergency Provider Emergency Medicine; PCP Internal Medicine; Visit Provider Internal Medicine
DX: U07.1 COVID-19 (principal); J96.01 Acute respiratory failure with hypoxia; J12.82 Pneumonia due to coronavirus disease 2019; R74.8 Abnormal levels of other serum enzymes; E11.9 Type 2 diabetes mellitus without complications; E78.2 Mixed hyperlipidemia; I10 Essential (primary) hypertension; G47.33 Obstructive sleep apnea (adult) (pediatric); E55.9 Vitamin D deficiency, unspecified; E66.9 Obesity, unspecified; Z68.36 Body mass index [BMI] 36.0-36.9, adult; Z85.828 Personal history of other malignant neoplasm of skin
CPT/HCPCS: 36415; 71045; 80048; 80053; 82728; 82948; 83615; 83735; 84460; 85025; 85027; 86140; 93005; 94618; 94640; 96361; 96365; 96372; 96375; 96376; 99285; A9270; G0378; J0131; J1100; J1650; J1815; J7030

== ENCOUNTER 2020-09-27 11:05 | Outpatient (CLI) | payer OTHER, SELFPAY ==
--- NOTE | ~2020-09-27 | XR_ITS ---
EXAMINATION: XR chest 2V DATE: 09/27/2020 11:23 INDICATION: COVID 19 pneumonia follow-up. TECHNIQUE: PA and lateral views of the chest were obtained. COMPARISON: Chest radiograph dated 09/09/2020 FINDINGS: Significant improvement in airspace opacities in the right mid to lower and left lower lung zone cons istent with improving COVID pneumonia. No new airspace opacities, pulmonary edema, pleural effusion o r pneumothorax. The cardiomediastinal silhouette is normal. Visualized bones and soft tissues are unr emarkable. IMPRESSION: 1. Decreasing opacities in the right mid to lower and left lower lung zone consistent with improving COVID pneumonia. Reviewed, dictated and finalized at location B. SEWER IMPRESSION: 1. Decreasing opacities in the right mid to lower and left lower lung zone cons istent with improving COVID pneumonia.
== END 2020-09-27 11:06 | disposition home or self-care (01) ==
PROVIDERS: PCP Internal Medicine; Visit Provider Internal Medicine
DX: U07.1 COVID-19 (principal); J12.82 Pneumonia due to coronavirus disease 2019
CPT/HCPCS: 71046

== ENCOUNTER 2020-10-21 09:15 | Outpatient (RCR) | payer OTHER, SELFPAY ==
[2020-10-08 14:11] VITALS: BMI 34.0
== END 2020-12-24 09:02 | disposition home or self-care (01) ==
LOC: ANHDMC 09:15
PROVIDERS: PCP Internal Medicine; Visit Provider Internal Medicine
DX: E11.9 Type 2 diabetes mellitus without complications (principal); Z71.3 Dietary counseling and surveillance; Z71.89 Other specified counseling
CPT/HCPCS: 97803; G0108

== ENCOUNTER 2022-01-05 10:44 | Outpatient (CLI) | payer OTHER, SELFPAY ==
--- NOTE | ~2022-01-05 | XR_ITS ---
XR knee RT min 4V DATE: 01/05/2022 11:05 INDICATION: Right generalized knee pain TECHNIQUE: Weidman, standing AP, PA and lateral views COMPARISON: None FINDINGS: There is mild periarticular spurring at the patellofemoral joint. Joint spaces are relatively preserved. No fracture or dislocation, radiopaque intra-articular loose body or chondrocalcinosis. No periosteal reaction or bone destruction. IMPRESSION: Mild patellofemoral osteoarthritis Reviewed, dictated and finalized at location A.
== END 2022-01-05 10:45 | disposition home or self-care (01) ==
LOC: ANHIMG 10:45
PROVIDERS: PCP Internal Medicine; Visit Provider Internal Medicine
DX: M17.11 Unilateral primary osteoarthritis, right knee (principal)
CPT/HCPCS: 73564

== ENCOUNTER → 2022-01-28 09:25 | Outpatient (CLI) | payer OTHER, SELFPAY ==
--- NOTE | ~2022-01-28 | MR_ITS ---
EXAMINATION: MR knee RT wo/w con DATE: 01/28/2022 10:12 INDICATION: Right knee pain TECHNIQUE: Magnetic resonance imaging (MRI) of the right without and with 20 mL Multihance knee was p erformed without intravenous contrast. Sequences included coronal PD-weighted FSE, coronal PD-weight ed FS FSE, sagittal T2-weighted FSE, sagittal PD-weighted FS FSE and axial PD weighted fat saturated FSE. COMPARISON: None. FINDINGS: Medial compartment: Longitudinal horizontal tear at the posterior horn of the medial meniscus which extends to the free e dge at the lateral side of the posterior horn and to the inferior articular surface in the peripheral third at the junction of the body and posterior horn. Partial-thickness cartilage loss and small mar ginal osteophytes with mild reticular edema-like signal change along the posterior rim of the medial tibial plateau. Lateral compartment: Lateral meniscus is normal. Articular cartilage is normal. Patellofemoral compartment: Deep chondral fissuring without degenerative subchondral changes extending across the central aspect of the lateral patellar facet. Deep chondral ulceration in places likely full-thickness with underlyi ng cortical irregularity and subarticular edema-like signal changes involving a significant portion o f the lateral trochlea and extending to the caudal aspect of the trochlear groove. Additional small r egion of partial-thickness chondral fissuring without degenerative subchondral changes at the inferio r aspect of the medial trochlea. Ligaments and tendons: Anterior and posterior cruciate ligaments are normal. The medial collateral ligament and fibular mark ateral ligament complex are normal. Mild tendinopathy at the distal quadriceps tendon. Patellar tendo n is normal. The visualized medial and lateral hamstring tendons as well as the iliotibial band are n ormal. Fluid: Normal mild thin synovial enhancement at the periphery of a small right knee joint effusion. No loose osteochondral bodies identified. Osseous/other: Bone alignment is normal. No fracture or pathologic marrow replacing process. Medial plical band whic h does not cross the medial rim of the medial trochlea. There is also a suprapatellar plical band. Mi ld prepatellar edema without discrete bursal fluid collection. IMPRESSION: 1. Horizontal tear at the posterior horn of the medial meniscus. 2. Mild to moderate osteoarthritis with extensive high-grade chondromalacia patellofemoral compartmen t. 3. Mild osteoarthritis in the medial compartment with subcortical edema-like signal change along the posterior rim which could be related to overlying chondromalacia or reactive edema related to altered stress distribution resulting from the overlying meniscal tear. Reviewed, dictated and finalized at location A. IMPRESSION: 1. Horizontal tear at the posterior horn of the medial meniscus. 2. Mild to moderate osteoarthritis with extensive high-grade chondromalacia pat ellofemoral compartment. 3. Mild osteoarthritis in the medial compartment with subcortical edema-like si gnal change along the posterior rim which could be related to overlying chondro malacia or reactive edema related to altered stress distribution resulting from the overlying meniscal tear.
[2022-01-28 09:48] LABS: Estimated Glomerular Filt Rate > 60
== END ==
PROVIDERS: PCP Internal Medicine; Visit Provider Internal Medicine
DX: M17.11 Unilateral primary osteoarthritis, right knee (principal); S83.241A Other tear of medial meniscus, current injury, right knee, initial encounter; X58.XXXA Exposure to other specified factors, initial encounter
CPT/HCPCS: 73723; A9577

== ENCOUNTER → 2022-04-29 06:56 | Outpatient (CLI) | payer OTHER, SELFPAY ==
--- NOTE | ~2022-04-29 | MR_ITS ---
EXAMINATION: MR cervical spine wo con DATE: 04/29/2022 07:40 INDICATION: Right-sided chronic cervical radiculopathy. TECHNIQUE: Magnetic resonance imaging (MRI) of the cervical spine was performed without intravenous c ontrast. Sequences included sagittal T2-weighted FSE, sagittal T2-weighted FS FSE, sagittal T1-weight ed FSE, axial MERGE, and axial T2-weighted FSE. COMPARISON: Cervical spine MRI 04/08/2017 FINDINGS: Bone alignment is normal. There is mild chronic anterior wedging of C5 and C7 vertebral bod ies. There is severely decreased disc height at C5-C6 and C6-C7. The spinal cord signal intensity is normal. The following disc levels are specifically discussed: C2-C3: There is a left foraminal protrusion. There is no uncovertebral joint osteoarthritis. There is severe right and mild left facet joint osteoarthritis. There is mild bilateral neural foraminal sten osis. There is no central canal stenosis. C3-C4: The disc is bulging. There is mild right and moderate left uncovertebral joint osteoarthritis. There is moderate bilateral facet joint osteoarthritis. There is mild right and moderate left neural foraminal stenosis. There is no central canal stenosis. C4-C5: The disc is bulging. There is mild bilateral uncovertebral joint osteoarthritis. There is luis re bilateral facet joint osteoarthritis. There is mild bilateral neural foraminal stenosis. There is no central canal stenosis. C5-C6: The disc is bulging. There is severe bilateral uncovertebral joint osteoarthritis. There is mi ld right facet joint osteoarthritis. There is moderate right and mild left neural foraminal stenosis. There is mild central canal stenosis with ventral indentation of the spinal cord. C6-C7: The disc does not extend beyond the endplate margin. There is severe bilateral uncovertebral j oint osteoarthritis. There is no facet joint osteoarthritis. There is mild bilateral neural foraminal stenosis. There is no central canal stenosis. C7-T1: There is a right central extrusion. There is moderate right and mild left uncovertebral joint osteoarthritis. There is mild bilateral facet joint osteoarthritis. There is mild bilateral neural fo raminal stenosis. There is mild central canal stenosis. IMPRESSION: 1. Severe cervical spondylosis, worsened from 04/08/2017. Reviewed, dictated and finalized at location A.
== END ==
PROVIDERS: PCP Internal Medicine; Visit Provider Internal Medicine
DX: M47.892 Other spondylosis, cervical region (principal); R53.1 Weakness; R20.2 Paresthesia of skin
CPT/HCPCS: 72141

== ENCOUNTER 2022-12-01 12:31 | Outpatient (CLI) | payer OTHER, SELFPAY ==
[2022-12-01 13:29] LABS: SARS-CoV-2 RNA PCR Negative (Negative)
== END 2022-12-01 12:32 | disposition home or self-care (01) ==
PROVIDERS: PCP Internal Medicine; Visit Provider Internal Medicine
DX: R05.9 Cough, unspecified (principal); R51.9 Headache, unspecified; Z20.822 Contact with and (suspected) exposure to COVID-19
CPT/HCPCS: U0003; U0005

== ENCOUNTER 2023-10-13 10:50 | Outpatient (CLI) | payer OTHER, SELFPAY ==
[2023-10-13 11:51] LABS: Strep Group A RT-PCR NOT DETECTED (Negative)
[2023-10-13 12:03] LABS: Influenza A QL RT-PCR Negative (Negative); Influenza B QL RT-PCR Negative (Negative); RSV RNA, RT-PCR Negative (Negative); SARS-CoV-2 RNA PCR Negative (Negative)
== END 2023-10-13 10:51 | disposition home or self-care (01) ==
LOC: ANHLAB 10:52
PROVIDERS: PCP Internal Medicine; Visit Provider Internal Medicine
DX: Z20.822 Contact with and (suspected) exposure to COVID-19 (principal)
CPT/HCPCS: 87637; 87651

== ENCOUNTER 2024-12-20 07:36 | Outpatient (CLI) | payer OTHER, SELFPAY ==
--- NOTE | ~2024-12-20 | XR_ITS ---
Thoracic spine: Clinical Indication: Back pain AP and lateral views were performed. No fracture is seen. There is normal alignment of the vertebrae. The intervertebral disc spaces appe ar normal. Paravertebral soft tissues appear normal. Impression: No significant abnormalities noted. Reviewed, dictated and finalized at [facility]. Impression: No significant abnormalities noted.
--- NOTE | ~2024-12-20 | XR_ITS ---
Lumbosacral Spine: AP and lateral views Clinical History: Pain Findings: The normal lordotic curve is maintained. No fracture evident. There is 9 mm anterolisthesis of L5 over S1, with severe degenerative disc narrowing at this level. There are mild degenerative ch anges in the remainder of the lumbar spine. There is mild to moderate facet arthropathy. The sacroili ac joints are normally outlined. Impression: Severe degenerative spondylosis at L5-S1 with 9 mm anterolisthesis at this level. Moderate degenerative change in the remainder of the lumbar spine. Reviewed, dictated and finalized at location . Impression: Severe degenerative spondylosis at L5-S1 with 9 mm anterolisthesis at this leve l. Moderate degenerative change in the remainder of the lumbar spine.
--- NOTE | ~2024-12-20 | XR_ITS ---
Supine and upright views of the abdomen Clinical history: Abdominal pain Findings: Bowel gas pattern is nonspecific. Probable prior herniorrhaphy. No evidence for obstruction or free air. No abnormal mass lesion or calcification is seen. Osseous structures are intact. Impression: No acute abnormality. Prior herniorrhaphy. Reviewed, dictated and finalized at [facility]. Impression: No acute abnormality. Prior herniorrhaphy.
--- OUTSIDE RECORDS SUMMARY | 2024-12-20 07:38 | XMS_ITS | Referral Summary ---
Author Organization [place] [id number] Address Formerly [facility] [place] [address] Care Team Providers Care Mucker Cofferdam Name Role Phone Taurus Lomas MD Primary Care Provider [phone] Allergies Active Allergy Reactions Criticality Noted Date Comments Quinolones Joint pain Low 03/06/2022 Sulfa (Sulfonamide Antibiotics) Hives High 1208/2018 Tetracycline Muscle pain High 06/26/2019 Medications Vascepa 1 gram capsuleIndicati ons:hypertrigly ceridemia,daron sterol Take 1 g by mouth every morning 02/05/2022 Active Synjardy XR 10-1,000 mg tablet, IR & ER, biphasic 24hrIndications :type 2 diabetes mellitus Take 1 tablet by mouth every morning 02/02/2022 Active cholecalciferol (VITAMIN D-3) 2000 unit capsuleIndicati ons:Vitamin D Deficiency Take 2,000 Units by mouth 2 (two) times a day 12/25/2021 Active naltrexone HCl (NALTREXONE ORAL)Indication s:colon Take 4.5 mg by mouth every morning Active HYDROcodone-dameon taminophen (NORCO) 5-325 mg per tabletIndicatio ns:Pain Take 1 tablet by mouth every 6 (six) hours as needed for pain 20 tablet 03/05/2022 Active ondansetron (ZOFRAN) 4 mg tablet Take 1 tablet (4 mg total) by mouth every 8 (eight) hours as needed for nausea 12 tablet 03/05/2022 Active meloxicam (MOBIC) 15 mg tablet Take 1 tablet (15 mg total) by mouth daily 30 tablet 1 06/12/2024 Active Active Problems Problem Noted Date Diagnosed Date Complex tear of medial menis cus of right knee as current injury 02/20/2022 Overview (02/20/2022): Added automatically from request for surgery [id number] Immunizations Immunization Administration Dates Next Due Influenza, Quadrivalent, Split, Intramuscular Social History Tobacco Use Types Packs/Day Years Used Date Smoking Tobacco: Never Smokeless Tobacco: Never AUDIT-C Answer Date Recorded Q1: How often do you have a drink containing alcohol? Never 02/23/2022 Q2: How many drinks containi ng alcohol do you have on a typical day when you are drinking? Patient does not drink Q3: How often do you have si x or more drinks on one occasion? Never 02/23/2022 Sex and Gender Information Value Date Recorded Sex Assigned at Not on file Legal Sex Male 12:06 PM PARKING METER SERVICER Gender Identity Not on file Sexual Orientation Not on file Last Filed Vital Signs Vital Sign Reading Time Taken Comments Blood Pressure 135/89 03/06/2022 1:25 PM CDT Pulse 72 03/06/2022 1:30 PM CDT Temperature 36.1 C (97 F) 03/06/2022 1:30 PM CDT Respiratory Rate 16 03/06/2022 1:30 PM CDT Oxygen Saturation 94% 03/06/2022 1:30 PM CDT Inhaled Oxygen Concentration - - Weight 122.5 kg (270 lb) 09/04/2024 9:01 AM PARKING METER SERVICER Height 188 cm (6' 2) 09/04/2024 9:01 AM PARKING METER SERVICER Body Mass Index 34.67 09/04/2024 9:01 AM PARKING METER SERVICER Plan of Treatment Not on file Insurance [facility]PP[facility] Address: [address] [address] [place] [address] [facility]/PPO Address: [address] [address] [place] [address] Care Teams Mucker Cofferdam Relationship Specialty Start Date End Date Taurus Lomas MD [address] [place] [address] PCP - General Internal Medicine 02/16/22
--- OUTSIDE RECORDS SUMMARY | 2024-12-20 07:38 | XMS_ITS | Clinical Summary ---
Author Organization [facility] Address [address] [address] Care Team Providers Care Machinery Mechanic Name Role Phone Taurus Lomas MD Primary Care Provider + Allergies Active Allergy Reactions Criticality Noted Date Comments Sulfa (Sulfonamide Antibiotics) Hives High 08/2018 Tetracycline Muscle Pain High 06/26/2019 Medications rosuvastatin (CRESTOR) 10 mg tablet Take 10 mg by mouth daily at bedtime. Active metFORMIN (GLUCOPHAGE) 1,000 mg tablet Take 1,000 mg by mouth 2 times daily with meals. PATIENT TAKES SYNJARFY XR Active omega-3 fatty acids-fish oil 300-1,000 mg Capsule Take by mouth daily. PATIENT TAKES VASCEPA Active SYNJARDY XR 10-1,000 mg tablet, IR & ER, biphasic 24hr 9 Active VASCEPA 1 gram Capsule 9 Active tirzepatide (Mounjaro) 2.5 mg/0.5 mL Pen Injector Inject 2.5 mg by subcutaneous injection every 7 days. 2 mL 11/25/2023 6:00 PM CDT 4 Active tirzepatide (Mounjaro) 2.5 mg/0.5 mL Pen Injector Inject 0.5 mL (2.5 mg) by subcutaneous injection every 7 days. 2 mL 10/14/2024 3:26 PM CDT 5 Active Active Problems Problem Noted Date Diagnosed Date Elevated INR 06/26/2019 Encounters Date Type Department Care Team Description 10/03/2024 External Device Data [facility]STRACTION Provider, Abstract 10/03/2024 External Device Data [facility]STRACTION Provider, Abstract from Last 3 Months Family History Medical History Relation Name Comments Diabetes Father Diabetes Mother Heart Disease Mother Relation Name Status Comments Brother Alive Father Mother Alive Social History Tobacco Use Types Packs/Day Years Used Date Smoking Tobacco: Never Smokeless Tobacco: Never Alcohol Use Standard Drinks/Week Comments Not Currently 0 (1 standard drink = 0.6 oz pur e alcohol) Sex and Gender Information Value Date Recorded Sex Assigned at Not on file Legal Sex Male 9:07 AM CDT Gender Identity Not on file Sexual Orientation Not on file Last Filed Vital Signs Vital Sign Reading Time Taken Comments Blood Pressure 122/79 07/06/2019 10:52 AM SPECIAL EDUCATION TEACHERS Pulse 90 07/06/2019 10:52 AM SPECIAL EDUCATION TEACHERS Temperature 36.8 C (98.2 F) 07/06/2019 10:52 AM SPECIAL EDUCATION TEACHERS Respiratory Rate - - Oxygen Saturation 96% 07/06/2019 10: 52 AM [employer] EDUCATION TEACHERS Inhaled Oxygen Concentration - - Weight 132.5 kg (292 lb 1.6 oz) 019 10:52 AM SPECIAL EDUCATION TEACHERS Height 188 cm (6' 2) 07/06/2019 10:52 AM SPECIAL EDUCATION TEACHERS Body Mass Index 37.5 07/06/2019 10:52 AM SPECIAL EDUCATION TEACHERS Plan of Treatment Health Maintenance Due Date Last Done Comments DTAP/TDAP/TD VACCINES (1 - Tdap) 1985 HEPATITIS B VACCINES (1 of 3 - 19+ 3-dose series) 07/1984 COLORECTAL SCREENING 2011 Colorectal Cancer Screening 2011 FIT-DNA Q 3 years 2011 FIT/FOBT Q 1 year 2011 Flex Sig/CT Colonography Q 5 years 2011 ZOSTER VACCINE (1 of 2) 2016 INFLUENZA VACCINE (#1) 2024 Insurance RX [facility] [employer] Care Teams Machinery Mechanic Relationship Specialty Start Date End Date Taurus Lomas MD [address] [place] [address] PCP - General Internal Medicine 05/26/19
--- OUTSIDE RECORDS SUMMARY | 2024-12-20 07:38 | XMS_ITS | Clinical Summary ---
Author Organization [place] [id number] [facility] Address Formerly [facility] [place] [address] Care Team Providers Care Nurse Wound Name Role Phone Taurus Lomas MD Primary Care Provider [phone] Allergies Active Allergy Reactions Criticality Noted Date [...] (02/20/2022): Added automatically from request for surgery [id number] Immunizations Immunization Administration Dates Next Due Influenza, Quadrivalent, Split, Intramuscular Surgical History Surgery Date Site/Laterality Comments ANKLE SURGERY 07/26/1982 - 07/25/1983 Right CHOLECYSTECTOMY 07/26/2001 - 07/25/2002 OTHER SURGICAL HISTORY 07/26/1996 - 07/25/1997 tailbone surgery COLON SURGERY 07/26/2005 - 07/25/2006 HERNIA REPAIR 07/26/2007 - 07/25/2008 COLONOSCOPY 06/25/2021 - 07/25/2021 Medical History Medical History Date Comments Sleep apnea Has not started using the CPAP yet, recently got machine. Diabetes mellitus (HCC) A1C 5.7 in 12/2021 per patient Juvenile polyposis syndrome s/p bowel resection, on naltrexone Family History Medical History Relation Name Comments Arthritis Father Diabetes Mother Heart disease Mother Arthritis Sister Anesthesia problems Neg Hx Relation Name Status Comments Father Mother Sister Social History Tobacco Use Types Packs/Day Years [...] on file Legal Sex Male 12:06 PM BODY BUMPER Gender Identity Not on file Sexual Orientation Not on file Obstetrics History Last Filed Vital Signs Vital Sign Reading Time Taken Comments Blood Pressure 135/89 03/06/2022 1:25 PM CDT Pulse 72 03/06/2022 1:30 PM CDT Temperature 36.1 C (97 F) 03/06/2022 1:30 PM CDT Respiratory Rate 16 03/06/2022 1:30 PM CDT Oxygen Saturation 94% 03/06/2022 1:30 PM CDT Inhaled Oxygen Concentration - - Weight 122.5 kg (270 lb) 09/04/2024 9:01 AM BODY BUMPER Height 188 cm (6' 2) 09/04/2024 9:01 AM BODY BUMPER Body Mass Index 34.67 09/04/2024 9:01 AM BODY BUMPER Plan of Treatment Health Maintenance Due Date Last Done Comments Albumin Creatinine Ratio, Urine 1966 Colon Cancer Screening-Colonoscopy 1966 Depression Screening 1966 Hemoglobin A1C 1966 Hepatitis C Screening 1966 Prostate Cancer Screening-PSA 1966 eGFR 1966 Dilated Eye Exam 1966 Foot Exam 1966 Lipid Panel 1966 DTaP/Tdap/Td Vaccine (1 - Tdap) 1977 Hepatitis B Screening 1984 Regular Well Visit/Exam 18-64 1984 Pneumococcal vaccine <65 (1 of 2 - PCV) 1985 Zoster Vaccine (1 of 2) 2016 Covid-19 Vaccine (4 - 2023- season) 2024 07/29/2021, 01/03/2021, 11/26/2020 Influenza Vaccine (Season Ended) 2025 03/26/20 17 Insurance [facility] H[facility]/PPO Address: [facility] [address] [place] [address] [facility]/[place] [address] Care Teams Nurse Wound Relationship Specialty Start Date End Date Taurus Lomas MD [address] [place] [address] PCP - General Internal Medicine 02/16/22
--- OUTSIDE RECORDS SUMMARY | 2024-12-20 07:38 | XMS_ITS | Clinical Summary ---
Author Organization [facility] Address [address] [place] [address] Care Team Providers Care Mr Teacher Name Role Phone Merline Clinton MD Primary Care Provider [phone] Source Comments [facility],non-owned Affiliates and Associated Physician Practices is amultiple site organization consisting of ambulatory clinics and hospital sitesin [place], [place], [place] and [place]. This disclosure is being madepursuant to the Care Everywhere program and may not contain all information available regarding this patient. 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 07/11/20 13 Family History Medical History Relation Name Comments Allergy (Severe) Neg Hx Cancer - Skin, Melanoma Neg Hx Cancer - Skin, Non Melanoma Neg Hx Eczema Neg Hx Psoriasis Neg Hx Rashes/Skin Problems Neg Hx Social History Tobacco Use Types Packs/Day Years Used Date Smoking Tobacco: Never Alcohol Use Standard Drinks/Week Comments No 0 (1 standard drink = 0.6 oz pur e alcohol) Sex and Gender Information Value Date Recorded Sex Assigned at Not on file Legal Sex Male 6:28 PM PARTNER MANAGEMENT CONSULTANT Gender Identity Not on file Sexual Orientation Not on file Last Filed Vital Signs Vital Sign Reading Time Taken Comments Blood Pressure 110/78 08/11/2013 7:47 AM PARTNER MANAGEMENT CONSULTANT Pulse 85 08/03/2013 6:00 PM PARTNER MANAGEMENT CONSULTANT Temperature 36.8 C (98.3 F) 08/03/2013 5:35 PM PARTNER MANAGEMENT CONSULTANT Respiratory Rate 16 08/03/2013 6:00 PM PARTNER MANAGEMENT CONSULTANT Oxygen Saturation 95% 08/03/2013 6:00 PM PARTNER MANAGEMENT CONSULTANT Inhaled Oxygen Concentration - - Weight 130.6 kg (288 lb) 08/11/2013 7:47 AM PARTNER MANAGEMENT CONSULTANT Height 188 cm (6' 2) 08/11/2013 7:47 AM PARTNER MANAGEMENT CONSULTANT Body Mass Index 36.98 08/11/2013 7:47 AM PARTNER MANAGEMENT CONSULTANT Plan of Treatment Health Maintenance Due Date Last Done Comments COLOGUARD (AGES 45-75) - COL ON CA SCREENING 1966 COLON MONITORING 1966 COLONOSCOPY - COLON CA SCREENING 1966 CT COLONOGRAPHY - COLON CA SCREENING 1966 Colorectal Cancer Screening 1966 FIT - COLON CA SCREENING 1966 FLEX SIG - COLON CA SCREENING 1966 LIPID TESTING 1966 HIV SCREENING 1981 HEPATITIS C SCREENING 04/20/1984 DTAP/TDAP/TD VACCINES (1 - Tdap) 1985 HEPATITIS B VACCINE (1 of 3 - 19+ 3-dose series) 1985 PNEUMOCOCCAL VACCINE 50+ (1 of 1 - PCV) 2016 ZOSTER VACCINE (1 of 2) 2016 COVID-19 VACCINE (1 - 2023-2 5 season) 2024 DEPRESSION SCREENING 07/26/2024 INFLUENZA VACCINE (Season Ended) 2025 HIB VACCINE Aged Out No longer eligi ble based on patient's age to complete this topic HPV VACCINE Aged Out No longer eligi ble based on patient's age to complete this topic MENINGOCOCCAL (Group B) VACC INE SHARED DECISION-MAKING Aged Out No longer eligibl e based on patient's age to complete this topic MENINGOCOCCAL GROUPS A/C/Y/W VACCINE Aged Out No longer eligible b ased on patient's age to complete this topic Care Teams Mr Teacher Relationship Specialty Start Date End Date Merline Clinton MD PCP - General 06/21/13
== END 2024-12-20 07:37 | disposition home or self-care (01) ==
LOC: ANHIMG 07:37
PROVIDERS: PCP Internal Medicine; Visit Provider Internal Medicine
DX: R10.9 Unspecified abdominal pain (principal); M47.897 Other spondylosis, lumbosacral region; M51.369 Other intervertebral disc degeneration, lumbar region without mention of lumbar back pain or lower extremity pain
CPT/HCPCS: 72072; 72100; 74018

== ENCOUNTER 2024-12-21 12:47 | Outpatient (CLI) | payer OTHER, SELFPAY ==
--- NOTE | ~2024-12-21 | US_ITS ---
EXAM: RENAL ULTRASOUND HISTORY: R10.9 - Unspecified abdominal pain COMPARISON: None FINDINGS: RIGHT KIDNEY: 12.6 x 5.0 x 5.3 cm. The parenchyma of the right kidney is unremarkable in echogenicity and thickness. No hydronephrosis or bulky renal calculi. LEFT KIDNEY: 12.7 x 4.2 x 7.3cm The parenchyma of the right kidney is unremarkable in echogenicity and thickness No hydronephrosis or renal calculi. BLADDER: Distended with bilateral ureteral jets identified IMPRESSION: Unremarkable sonographic evaluation of bilateral kidneys, as detailed above. Reviewed, dictated and finalized at location A.
== END 2024-12-21 12:48 | disposition home or self-care (01) ==
LOC: GOSHIMG 12:48
PROVIDERS: PCP Internal Medicine; Visit Provider Internal Medicine
DX: R10.9 Unspecified abdominal pain (principal); G89.29 Other chronic pain
CPT/HCPCS: 76775

== ENCOUNTER 2025-05-28 09:35 | Outpatient (CLI) | payer OTHER, SELFPAY ==
--- OUTSIDE RECORDS SUMMARY | 2025-05-28 10:18 | XMS_ITS | Patient Health Record ---
Author Organization [facility] Address [address] [place], [place] [id number] Support Name Relationship Address Phone DOMINGUEZ NEWELL Guarantor Unknown [phone] Reason For Referral No Information Social History Social History Additional Details Category Social Info Options Details Migrated Social History Migrated Social History History of tobacco use : , Smoking Status : Never smoked Plan Of Treatment No Information Insurance Providers Payer Name Payer Address Payer Phone Subscriber Number Group Number Insured Name Patient Relationship to Insured Coverage Start Date Coverage End Date [facility] [address] [address] [place] [address] [id number] DOMINGUEZ NEWELL Self - patient is the insured
--- OUTSIDE RECORDS SUMMARY | 2025-05-28 10:18 | XMS_ITS | Clinical Summary ---
Author Organization [facility] Address [address] [place] [address] Care Team Providers Care Corporate Manager Name Role Phone Taurus Lomas MD Primary [...] Encounters Date Type Department Care Team Description 05/08/2025 External Device Data [facility] ABSTRACTION Provider, Abstract 04/17/2025 External Device Data [facility] ABSTRACTION Provider, Abstract 04/17/2025 External Device Data [facility] ABSTRACTION Provider, Abstract 04/17/2025 External Device Data [facility] ABSTRACTION Provider, Abstract [...] Comments Blood Pressure 122/79 07/06/2019 10:52 AM LAY OUT TECHNICIAN Pulse 90 07/06/2019 10:52 AM LAY OUT TECHNICIAN Temperature 36.8 C (98.2 F) 07/06/2019 10:52 AM LAY OUT TECHNICIAN Respiratory Rate - - Oxygen Saturation 96% 07/06/2019 10: 52 AM LAY OUT TECHNICIAN Inhaled Oxygen Concentration - - Weight 132.5 kg (292 lb 1.6 oz) 019 10:52 AM LAY OUT TECHNICIAN Height 188 cm (6' 2) 07/06/2019 10:52 AM LAY OUT TECHNICIAN Body Mass Index 37.5 07/06/2019 10:52 AM LAY OUT TECHNICIAN Plan of Treatment Health Maintenance Due Date Last Done Comments DTAP/TDAP/TD VACCINES (1 - Tdap) 1985 HEPATITIS B VACCINES (1 of 3 - 19+ 3-dose series) 07/1984 COLORECTAL SCREENING 2011 Colorectal Cancer Screening 2011 FIT-DNA Q 3 years 2011 FIT/FOBT Q 1 year 2011 Flex Sig/CT Colonography Q 5 years 2011 ZOSTER VACCINE (1 of 2) 2016 INFLUENZA VACCINE (#1) 2025 Insurance RX [facility] [employer] Care Teams Corporate Manager Relationship Specialty Start Date End Date Taurus Lomas MD [address] [place] [address] PCP - General Internal Medicine 05/26/19
--- OUTSIDE RECORDS SUMMARY | 2025-05-28 10:18 | XMS_ITS | Clinical Summary ---
Author Organization [facility] Address [address] [place] [address] Care Team Providers Care Spreader Operator Name Role Phone Merline Clinton MD Primary Care Provider Source Comments [facility],non-owned Affiliates and Associated Physician Practices is amultiple site organization consisting of ambulatory clinics and hospital sitesin [place], [place], [place] and [place]. This disclosure is being madepursuant to the Care Everywhere program and may not contain all information available regarding this patient. 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 Gender Identity Not on file Sexual Orientation Not on file Last Filed Vital Signs Vital Sign Reading Time Taken Comments Blood Pressure 110/78 08/11/2013 7:47 AM PHOTORESIST CONTACT PRINTER Pulse 85 08/03/2013 6:00 PM PHOTORESIST CONTACT PRINTER Temperature 36.8 C (98.3 F) 08/03/2013 5:35 PM PHOTORESIST CONTACT PRINTER Respiratory Rate 16 08/03/2013 6:00 PM PHOTORESIST CONTACT PRINTER Oxygen Saturation 95% 08/03/2013 6:00 PM PHOTORESIST CONTACT PRINTER Inhaled Oxygen Concentration - - Weight 130.6 kg (288 lb) 08/11/2013 7:47 AM PHOTORESIST CONTACT PRINTER Height 188 cm (6' 2) 08/11/2013 7:47 AM PHOTORESIST CONTACT PRINTER Body Mass Index 36.98 08/11/2013 7:47 AM PHOTORESIST CONTACT PRINTER Plan of Treatment Health Maintenance Due Date [...] 2016 ZOSTER VACCINE (1 of 2) 2016 DEPRESSION SCREENING 07/26/2024 COVID-19 VACCINE (1 - 2023-2 5 season) 2025 INFLUENZA VACCINE (#1) 2025 HIB VACCINE Aged Out No longer [...] age to complete this topic Care Teams Spreader Operator Relationship Specialty Start Date End Date Mreline Clinton MD PCP - General 06/21/13
--- OUTSIDE RECORDS SUMMARY | 2025-05-28 10:18 | XMS_ITS | Clinical Summary ---
Author Organization [place] [id number] [facility] Address [address] [place] [address] Care Team Providers Care Process Steward Name Role Phone Taurus Lomas MD Primary Care Provider [phone] Allergies Active Allergy Reactions Criticality Noted Date [...] (02/20/2022): Added automatically from request for surgery [id number] Immunizations Immunization Administration Dates Next Due Influenza, [...] CPAP yet, recently got machine. 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 Gender Identity Not on file Sexual Orientation [...] 122.5 kg (270 lb) 09/04/2024 9:01 AM BINDER OPERATOR Height 188 cm (6' 2) 09/04/2024 9:01 AM BINDER OPERATOR Body Mass Index 34.67 09/04/2024 9:01 AM BINDER OPERATOR Plan of Treatment Health Maintenance Due Date Last Done Comments Colon Cancer Screening-Colonoscopy 1966 Depression Screening 1966 Hepatitis C Screening 1966 Prostate Cancer Screening-PSA 1966 DTaP/Tdap/Td Vaccine (1 - Tdap) 1977 Hepatitis B Screening 1984 Regular Well Visit/Exam 18-64 1984 Zoster Vaccine (1 of 2) 2016 Covid-19 Vaccine (2024-2 6 season) 2025 07/29/2021, 01/03/2021, 11/26/2020 Influenza Vaccine (#1) 2025 03/26/2017 Pneumococcal vaccine <65 Aged Out No longer eligible based on patient's age to complete this topic Insurance [facility] PLUS [facility] PL[facility] Care Teams Process Steward Relationship Specialty Start Date End Date Taurus Lomas MD PCP - General Internal Medicine 02/16/22
[2025-05-28 13:46] LABS: Strep Group A RT-PCR NOT DETECTED (Negative)
[2025-05-28 13:53] LABS: Influenza A QL RT-PCR Negative (Negative); Influenza B QL RT-PCR Negative (Negative); RSV RNA, RT-PCR Negative (Negative); SARS-CoV-2 RNA PCR Negative (Negative)
== END 2025-05-28 09:36 | disposition home or self-care (01) ==
PROVIDERS: PCP Internal Medicine; Visit Provider Internal Medicine
DX: R50.9 Fever, unspecified (principal); Z20.822 Contact with and (suspected) exposure to COVID-19
CPT/HCPCS: 87637; 87651

== ENCOUNTER 2025-06-08 15:28 | Outpatient (CLI) | payer OTHER, SELFPAY ==
--- NOTE | ~2025-06-08 | MR_ITS ---
EXAM/PROCEDURE: MR ankle LT wo con HISTORY: Spontaneous rupture of flexor tendons COMPARISON: None available. TECHNIQUE: Noncontrast enhanced multiplanar MRI of the left ankle performed. FINDINGS: No fracture subluxation or dislocation present. Trace ankle effusion is present. Chondral articulating surfaces appear heterogeneously, mildly thinned throughout the tibiotalar and subtalar joints. No cortical erosion. Minimal subchondral cystic changes developing in the calcaneus at the subtalar joint. Small to moderate-sized plantar calcaneal spur noted with trace amount of hyperintense signal on T2-weighted sequences adjacent to the spur. The talofibular, calcaneofibular and deltoid ligaments appear intact. The flexor tendons to include the posterior tibial, flexor digitorum longus and flexor hallucis longus tendons appear normal in shape and signal with no clear disruption. The peroneal tendons also appear intact with trace amounts of fluid within both of their tendon sheaths. There is also mild hyperintense T2-weighted signal in the visualized distal portion of the peroneal brevis muscle. Extensor tendons appear intact. Visualized portions of the Achilles tendon slightly bulbous in appearance but normal in signal with no discrete tear seen. The extra articular soft tissues appear normal. IMPRESSION: 1. Mild to moderate scattered degenerative changes about the ankle and hindfoot including plantar spur. 2. Trace joint effusion at the tibiotalar joint. No clear tendon disruption identified, however the visualized Achilles tendon is somewhat thickened and could represent mild tendinosis or less likely partial-thickness tear. There is also mild hyperintense signal change in the distal fibers of the peroneal brevis possibly representing mild myositis. 3. Trace amounts of fluid in the peroneal tendon sheaths may be physiologic versus tenosynovitis. Correlate with clinical exam. Reviewed, dictated and finalized at location A. STRAR ASSISTANT IMPRESSION: 1. Mild to moderate scattered degenerative changes about the ankle and hindfoot including plantar spur. 2. Trace joint effusion at the tibiotalar joint. No clear tendon disruption esther ntified, however the visualized Achilles tendon is somewhat thickened and could represent mild tendinosis or less likely partial-thickness tear. There is also mild hyperintense signal change in the distal fibers of the peroneal brevis po ssibly representing mild myositis. 3. Trace amounts of fluid in the peroneal tendon sheaths may be physiologic miguel elis tenosynovitis. Correlate with clinical exam.
== END 2025-06-08 15:29 | disposition home or self-care (01) ==
LOC: MICIMG 15:29
PROVIDERS: PCP Internal Medicine; Visit Provider Podiatrist Foot & Ankle Surgery
DX: M76.822 Posterior tibial tendinitis, left leg (principal); M66.372 Spontaneous rupture of flexor tendons, left ankle and foot; M19.072 Primary osteoarthritis, left ankle and foot
CPT/HCPCS: 73721